=== PATIENT | female | born 1970 | race Caucasian/White ===

== ENCOUNTER → 2016-10-02 | Outpatient (CLI) | payer OTHER ==
[2016-10-02 12:22] LABS: BASO % 0.5 % (0.0-1.0); EOS # 0.2 10*3/uL (0.0-0.4); EOS % 3.1 % (1.0-4.0); HEMATOCRIT 39.8 % (37.0-47.0); HEMOGLOBIN 13.2 g/dl (12.0-16.0); LYMPH # 1.5 10*3/uL (1.3-4.4); LYMPH % 22.8 % (27.0-41.0); MEAN CORPUSCULAR HGB 29.9 pg (27.0-31.0); MEAN CORPUSCULAR HGB CONC 33.2 g/dl (33.0-37.0); MEAN PLATELET VOLUME 10.2 fl (9.6-12.3); MONO # 0.7 10*3/uL (0.1-1.0); MONO % 10.9 % (3.0-9.0); NEUT % 62.4 % (47.0-73.0); PLATELET COUNT AUTOMATED 224 10*3/uL (130-400); RED BLOOD COUNT 4.42 10*6/uL (4.10-5.10); RED CELL DISTRI WIDTH 12.9 % (0-14.5); WHITE BLOOD COUNT 6.5 10*3/uL (4.8-10.8)
[2016-10-02 12:53] LABS: ALBUMIN 3.7 gm/dl (3.1-4.5); ALKALINE PHOSPHATASE 75 U/L (45-117); BILIRUBIN, TOTAL 0.4 mg/dl (0.2-1.0); BUN 22 mg/dl (7-24); CARBON DIOXIDE 25 mmol/L (21-32); CHLORIDE 105 mmol/L (98-107); EST GLOM FILT AFRICAN AMERICAN > 60 ml/min; GLUCOSE 84 mg/dL (65-99); POTASSIUM 4.5 mmol/L (3.5-5.1); SGOT/AST 18 IU/L (3-35); SGPT/ALT 28 U/L (12-78); SODIUM 141 mmol/L (136-145); TOTAL PROTEIN 7.9 gm/dL (6.4-8.2)
== END ==
LOC: LAB 11:48
PROVIDERS: Nurse Practitioner Family
DX: E03.9 Hypothyroidism, unspecified (principal); R41.9 Unspecified symptoms and signs involving cognitive functions and awareness; R00.2 Palpitations; F41.9 Anxiety disorder, unspecified

== ENCOUNTER → 2016-10-05 | Outpatient (CLI) | payer OTHER | LOC: US 06:09 → MAMMO 12:00 | DX: Z12.31 Encounter for screening mammogram for malignant neoplasm of breast (principal); F41.9 Anxiety disorder, unspecified; R00.2 Palpitations; E03.9 Hypothyroidism, unspecified; E04.2 Nontoxic multinodular goiter ==

== ENCOUNTER → 2017-02-19 | Outpatient (CLI) | payer OTHER ==
[2017-02-19 21:42] LABS: FREE T4 0.88 ng/dl (0.76-1.46)
[2017-02-19 21:47] LABS: THYROID STIM HORMONE (HS) 4.53 uIU/ml (0.358-4.75)
[2017-02-21 06:09] LABS: THYROID PEROXIDASE (TPO) AB 14 IU/mL (0-34)
[2017-02-21 15:09] LABS: THYROGLOBULIN ANTIBODY <1.0 IU/mL (0.0-0.9)
== END | disposition home or self-care (01) ==
LOC: LAB 20:50
PROVIDERS: Nurse Practitioner Family
DX: E04.9 Nontoxic goiter, unspecified (principal); R06.09 Other forms of dyspnea

== ENCOUNTER 2019-06-05 21:06 | Emergency (ER) | payer OTHER, BC ==
[~2019-06-05] VITALS: Ht 170.1 cm; Wt 81.6 kg
[2019-06-05 21:16] VITALS: BP 131/83
[2019-06-05] MEDS ORDERED: IBUPROFEN600 MG PO (22:01)
== END 2019-06-05 21:47 | disposition home or self-care (01) ==
LOC: ED 21:06
DX: S16.1XXA Strain of muscle, fascia and tendon at neck level, initial encounter (principal); Z88.2 Allergy status to sulfonamides; Z88.8 Allergy status to other drugs, medicaments and biological substances; V89.2XXA Person injured in unspecified motor-vehicle accident, traffic, initial encounter; Y93.89 Activity, other specified; Y92.89 Other specified places as the place of occurrence of the external cause; Y99.8 Other external cause status

== ENCOUNTER → 2023-06-06 | Outpatient (CLI) | payer OTHER ==
[~2023-06-06] MED LIST: IBUPROFEN600 MG PO
== END ==
LOC: US 10:13
PROVIDERS: ATTEND Nurse Practitioner Family
DX: R20.2 Paresthesia of skin (principal)